=== PATIENT | female | born 1935 | race Caucasian/White ===

== ENCOUNTER 2019-02-13 11:49 | Inpatient (IN) | payer OTHER ==
[~2019-02-13] VITALS: Ht 162.6 cm; Wt 111.1 kg
[2019-02-13] MEDS ORDERED: ISOSORBIDE DINI30 MG (12:31)
[2019-02-13] MEDS ORDERED: DEMADEX10 MG (12:32)
[2019-02-13] MEDS ORDERED: CITALOPRAM20 MG/10 M (12:32)
[2019-02-13] MEDS ORDERED: ATORVASTATIN CA20 MG (12:32)
[2019-02-13] MEDS ORDERED: ELIQUIS5 MG (12:32)
[2019-02-13] MEDS ORDERED: COZAAR50 MG (12:32)
[2019-02-18] MEDS ORDERED: PROTONIX40 MG PO (14:35)
[2019-02-18] MEDS ORDERED: LEVAQUIN500 MG PO (14:35)
[2019-02-18] MEDS ORDERED: FLAGYL500MG PO (14:35)
== END 2019-02-18 17:03 | disposition home or self-care (01) | DRG 603 ==
LOC: ER 11:49 → SURH 21:24
PROVIDERS: ADMIT Surgery
PROC: BW21Y0Z Computerized Tomography (CT Scan) of Abdomen and Pelvis using Other Contrast, Unenhanced and Enhanced (ICD-10-PCS; principal; 2019-02-13)
PROC: BW40ZZZ Ultrasonography of Abdomen (ICD-10-PCS; 2019-02-16)
DX: L02.211 Cutaneous abscess of abdominal wall (principal); D68.318 Other hemorrhagic disorder due to intrinsic circulating anticoagulants, antibodies, or inhibitors; N17.8 Other acute kidney failure; K44.9 Diaphragmatic hernia without obstruction or gangrene; K43.9 Ventral hernia without obstruction or gangrene; I70.0 Atherosclerosis of aorta; N18.2 Chronic kidney disease, stage 2 (mild); B96.1 Klebsiella pneumoniae [K. pneumoniae] as the cause of diseases classified elsewhere; B96.7 Clostridium perfringens [C. perfringens] as the cause of diseases classified elsewhere; B95.4 Other streptococcus as the cause of diseases classified elsewhere; I12.9 Hypertensive chronic kidney disease with stage 1 through stage 4 chronic kidney disease, or unspecified chronic kidney disease; E66.09 Other obesity due to excess calories; Z86.718 Personal history of other venous thrombosis and embolism; Z79.01 Long term (current) use of anticoagulants